=== PATIENT | male | born 1980 | race African-American/Black ===

== ENCOUNTER 2023-10-21 19:59 | Emergency (ER) | payer MEDICAID ==
[~2023-10-21] VITALS: Ht 170.2 cm; Wt 73.0 kg
[2023-10-21 20:04] VITALS: TEMP 98; O2SAT 98
[2023-10-21] MEDS: TETANUS, DIPHTHERIA, PERTUSSIS VAC/PF 0.5ML (>10YR OLD) IM ONE (20:30)
[2023-10-21] MEDS: LEVETIRACETAM 500MG TABLET PO ONE (21:45)
[2023-10-21 23:20] VITALS: BP 100/57; PULSE 80; RESP 18
== END 2023-10-21 23:24 | disposition home or self-care (01) ==
LOC: ER 20:56
DX: G40.901 Epilepsy, unspecified, not intractable, with status epilepticus (principal); S01.511A Laceration without foreign body of lip, initial encounter; F17.200 Nicotine dependence, unspecified, uncomplicated; F12.10 Cannabis abuse, uncomplicated; X58.XXXA Exposure to other specified factors, initial encounter; Y93.89 Activity, other specified; Y92.89 Other specified places as the place of occurrence of the external cause; Y99.8 Other external cause status
CPT/HCPCS: 99283